=== PATIENT | male | born 1950 | race Caucasian/White ===

== ENCOUNTER 2017-11-25 08:23 | Outpatient (CLI) | payer MEDICARE, OTHER | END 2017-11-25 08:24 | disposition home or self-care (01) | LOC: BICULT 08:23 | PROVIDERS: ATTEND Internal Medicine Gastroenterology | DX: K82.4 Cholesterolosis of gallbladder (principal); K21.9 Gastro-esophageal reflux disease without esophagitis; K29.70 Gastritis, unspecified, without bleeding; R13.10 Dysphagia, unspecified; R19.4 Change in bowel habit | CPT/HCPCS: 76705 ==

== ENCOUNTER 2018-01-08 13:03 | Outpatient (CLI) | payer MEDICARE, OTHER ==
[2018-01-08 14:40] LABS: #Basophils 0.1 thou/uL (0.0-0.2); #Eosinphils 0.3 thou/uL (0.0-0.7); #Monocytes 0.9 thou/uL (0.11-0.59); #Neutrophils 4.5 thou/uL (1.40-6.50); %Basophils 1.2 % (0.0-1.0); %Lymphocytes 34.1 % (21.0-51.0); %Monocytes 10.4 % (0.0-10.0); %Neutrophils 51.3 % (42.0-75.0); Mean Corpuscular HGB CONC 33.7 g/dL (32.0-36.0); Mean Corpuscular Hemoglobin 32.1 pg (27.0-31.0); Mean Corpuscular Volume 95.1 fL (78.0-98.0); Mean Platelet Volume 7.2 fL (7.4-10.4); Platelet Count 307 thou/uL (130-400); Red Blood Cell (RBC) Count 4.68 mill/uL (4.70-6.10); White Blood Cell (WBC) Count 8.8 thou/uL (4.8-10.8)
[2018-01-08 15:00] LABS: ALT (SGPT) 21 U/L (8-55); AST (SGOT) 22 U/L (5-34); Albumin 4.4 g/dL (3.4-4.8); Alkaline Phosphatase 46 U/L (40-150); Anion Gap 11 mmol/L (10-20); BUN (Urea Nitrogen) 14 mg/dL (8.4-25.7); Bilirubin, Direct 0.1 mg/dL (0.1-0.3); Bilirubin, Total 0.4 mg/dL (0.2-1.2); Calc. Creatinine Clearance 0 mL/min (70-130); Calcium 9.7 mg/dL (7.8-10.44); Carbon Dioxide 25 mmol/L (23-31); Chloride 108 mmol/L (98-107); Estimated GFR-MDRD 82; Glucose 94 mg/dL (80-115); Sodium 140 mmol/L (136-145)
== END 2018-01-08 13:04 | disposition home or self-care (01) ==
LOC: LABBT 13:03
PROVIDERS: ATTEND Surgery
DX: Z01.812 Encounter for preprocedural laboratory examination (principal); K82.4 Cholesterolosis of gallbladder
CPT/HCPCS: 80048; 80076; 85025

== ENCOUNTER 2018-01-09 05:55 | Day surgery (SDC) | payer MEDICARE, OTHER ==
[2018-01-08 14:08] VITALS: BMI 24.3
[2018-01-09] MEDS ORDERED: Fentanyl 100 MCG/2 ML VIAL ONE ×2 (06:31→08:29)
[2018-01-09] MEDS ORDERED: CEFAZOLIN/Water 2 GM/20 ML SYRINGE ONE (06:47)
[2018-01-09] MEDS ORDERED: Bupivacaine/Epinephrine 0.25% 30 ML VIAL ONE (06:50)
[2018-01-09] MEDS ORDERED: Ondansetron HCl/PF 4 MG/2 ML Vial IVP PRN (08:53)
[2018-01-09] MEDS ORDERED: Promethazine HCl 25 MG/ML VIAL IM/IV PRN (08:53)
--- NOTE | 2018-01-09 11:18 | OP ---
DATE OF PROCEDURE: 01/09/2018 PREOPERATIVE DIAGNOSIS: Gallbladder polyp. POSTOPERATIVE DIAGNOSIS: Gallbladder polyp. PROCEDURE: Laparoscopic cholecystectomy. SURGEON: Ezequiel Alaniz M.D. ANESTHESIA: General. ESTIMATED BLOOD LOSS: Minimal. COMPLICATIONS: None. SPECIMEN: Gallbladder. FINDINGS: Chronic cholecystitis. PROCEDURE IN DETAIL: The patient was taken to the Operating Room and laid supine on the Operating Silvina m table. After general anesthetic was obtained, the abdomen was prepped and draped in a sterile fashi on. A curved incision was made below the umbilicus. Cautery was used to dissect down to the umbilical fascia. Umbilical fascia was incised and held up using a Vivian. The abdominal cavity was entered us ing a Denice clamp. Holding stitch of Vicryl was placed on each side of the fascia. Bloom trocar was placed. High-flow pneumoperitoneum was obtained. An upper midline 5-mm port and two right upper quadr ant 5-mm ports were placed under direct camera visualization. The gallbladder was retracted from the gallbladder fossa. The peritoneum of the gallbladder was opened anteriorly and posteriorly. The criti shaan view triangle was seen showing only the cystic duct and cystic artery branching from medial to la teral. There were no other branching structures. Two clips were placed proximally on the cystic duct and one laterally. It was cut using laparoscopic scissors. The cystic artery was taken in the same wa y. Electrocautery was then used to dissect the gallbladder out of the gallbladder fossa. The gallblad monica was placed in an Endo catch bag and brought out through the Bloom. There was no bleeding or bile in the liver bed. The cystic duct stump and cystic artery stump were intact without evidence of extr avasation or bleeding. All port sites were infiltrated using local anesthesia. All ports were removed under camera visualization. Pneumoperitoneum was let down. The Vicryl was used to close the fascial defect below the umbilicus. All incisions were irrigated and closed using 4-0 Monocryl and DermaBond. The patient was en route to Recovery in stable condition. All instrument counts, needle counts and l ap counts were correct.
== END 2018-01-09 11:25 | disposition home or self-care (01) ==
LOC: SDC 05:55
PROVIDERS: ATTEND Surgery
PROC: 0FT44ZZ Resection of Gallbladder, Percutaneous Endoscopic Approach (ICD-10-PCS; principal; 2018-01-09)
DX: K80.10 Calculus of gallbladder with chronic cholecystitis without obstruction (principal); K21.9 Gastro-esophageal reflux disease without esophagitis; Z79.899 Other long term (current) drug therapy; Z88.5 Allergy status to narcotic agent
CPT/HCPCS: 88304; 96374; J3010

== ENCOUNTER 2018-10-14 07:41 | Outpatient (CLI) | payer MEDICARE, OTHER ==
--- NOTE | 2018-10-14 08:45 | MRI ---
MRI cervical spine without contrast: 10/14/2018 COMPARISON: 12/04/2012 HISTORY: Cervical radiculopathy, pain TECHNIQUE: Multiplanar multisequence MR imaging of the cervical spine obtained without contrast FINDINGS: There is new anterior discectomy and fusion hardware present at C5-6. The sagittal STIR rocky ging demonstrates no focal area of osseous marrow edema. There is no anterolisthesis or retrolisthesis seen within the cervical spine. There is mild degenerative change at the atlantoaxial interspace. C2-3: Bilateral facet hypertrophy, left greater than right. No significant central canal or neural fo raminal stenosis. C3-4: Bilateral facet and uncovertebral osteophyte formation, right greater than left. Mild right omer ral foraminal stenosis. No significant central canal or left neural foraminal stenosis. C4-5: There is bilateral facet and uncovertebral osteophyte formation, left greater than right. There is a small left paracentral disc protrusion. No significant central canal stenosis. Mild bilateral neural foraminal stenosis, left greater than right. C5-6: Small left paracentral disc osteophyte complex present. This effaces the ventral thecal sac and abuts the ventral aspect of the cord laterally on the left with a mild degree of central canal stenosis. Bilateral facet and uncovertebral osteophyte formation noted, left greater than right, with moderate bilateral neural foraminal stenosis, left greater than right. C6-7: There is disc space narrowing, disc desiccation, and a small disc osteophyte complex causing mi ld central canal stenosis. Bilateral facet and uncovertebral osteophyte formation causes mild bilateral neural foraminal stenosis, right greater than left. C7-T1: Bilateral facet hypertrophy with mild bilateral neural foraminal stenosis. No significant cent ral canal stenosis. No focal area of abnormal signal intensity identified within the cervical cord. IMPRESSION: Postoperative and degenerative change within the cervical spine as described above.
--- NOTE | 2018-10-14 10:37 | MRI ---
MRI LUMBAR SPINE WITHOUT CONTRAST: INDICATIONS: History of lumbar radiculopathy. COMPARISON: 06/30/2015 FINDINGS: The visualized aspects of the retroperitoneal and paravertebral soft tissues appear within normal shirley its. There is stable modic endplate degenerative change at L5-S1. No additional marrow signal abnor mality is evident. The conus is seen to terminate at approximately L1. L5-S1: There is a broad-based disk osteophyte complex and facet hypertrophy, inducing mild left neur al foraminal narrowing. This is stable. L4-L5: There is mild facet hypertrophy and a broad-based disk bulge inducing mild bilateral neural f oraminal narrowing. This is stable to the prior exam. L3-L4: There is a mild broad-based bulge with facet hypertrophy but no appreciable central canal or neural foraminal narrowing. L2-L3: There is no appreciable central canal or neural foraminal narrowing. L1-L2: There is no appreciable central canal or neural foraminal narrowing. T12-L1: There is no appreciable central canal or neural foraminal narrowing. IMPRESSION: Stable spondylosis to the comparison study of 06/30/2015. POS: [facility]
== END 2018-10-14 07:42 | disposition home or self-care (01) ==
LOC: BICMRI 07:41
PROVIDERS: ATTEND Neurological Surgery
DX: M47.26 Other spondylosis with radiculopathy, lumbar region (principal); M47.22 Other spondylosis with radiculopathy, cervical region; Z98.890 Other specified postprocedural states
CPT/HCPCS: 72141; 72148

== ENCOUNTER 2020-07-31 11:40 | Inpatient (IN) | payer MEDICARE, OTHER ==
[2020-07-31] MEDS ORDERED: cefTRIAXone\\ROCEPHIN 2 GM VIAL ONE (12:09)
[2020-07-31 12:34] LABS: Eosinophils 1 % (0-10); Hemoglobin 15.9 g/dL (14.0-18.0); Lymphocytes 10 % (21-51); MDiff Complete? YES; Mean Corpuscular HGB CONC 33.8 g/dL (32.0-36.0); Mean Corpuscular Hemoglobin 31.7 pg (27.0-31.0); Mean Corpuscular Volume 93.9 fL (78.0-98.0); Mean Platelet Volume 7.5 fL (7.4-10.4); Monocytes 2 % (0-10); Neutrophil 87 % (42-75); Platelet Count 195 thou/uL (130-400); Platelet Morphology Comment Appears Adequate; RBC Distribution Width 11.8 % (11.5-14.5); Red Blood Cell (RBC) Count 5.02 mill/uL (4.70-6.10); White Blood Cell (WBC) Count 19.3 thou/uL (4.8-10.8)
[2020-07-31 12:38] LABS: Prothrombin Time 12.9 sec (12.0-14.7)
[2020-07-31 12:44] LABS: Bilirubin Negative (Negative); Blood, Urine Negative (Negative); Clarity Turbid (Clear); Glucose, Urine (Dipstick) Normal (Negative); Ketone, Urine Negative (Negative); Leukocyte 500 Leu/uL (Negative); Nitrite 2+ (Negative); Protein, Urine (Dipstick) 30 mg/dL (Neg-Trace); Specific Gravity, Urine 1.025 (1.002-1.036); Squamous Epithelial None Seen HPF (0-3); Urobilinogen Normal mg/dL (Less than 2); WBC/HPF Greater than 50 HPF (0-3); pH, Urine 5.5 (5.0-9.0)
[2020-07-31 12:45] LABS: RBC/HPF 0-3 HPF (0-3)
[2020-07-31 12:46] LABS: Bacteria/HPF 3+ HPF (None Seen)
[2020-07-31] MEDS ORDERED: Acetaminophen 500 MG TAB ONE (12:49)
[2020-07-31] MEDS ORDERED: Vancomycin 1 GM/200 ML BAG ONE ×2 (13:26→13:27)
[2020-07-31 13:37] LABS: Albumin 3.7 g/dL (3.4-4.8)
[2020-07-31 13:38] LABS: Chloride 106 mmol/L (98-107); Potassium 3.8 mmol/L (3.5-5.1); Sodium 137 mmol/L (136-145)
[2020-07-31 13:39] LABS: Calcium 8.3 mg/dL (7.8-10.44); Glucose 123 mg/dL (80-115)
[2020-07-31 13:40] LABS: Globulin 2.6 g/dL (2.4-3.5); Protein, Total 6.3 g/dL (5.8-8.1)
[2020-07-31 13:41] LABS: Anion Gap 13 mmol/L (10-20); Bilirubin, Total 1.2 mg/dL (0.2-1.2); Carbon Dioxide 22 mmol/L (23-31)
[2020-07-31 13:42] LABS: Alkaline Phosphatase 51 U/L (40-110)
[2020-07-31 13:43] LABS: BUN (Urea Nitrogen) 11 mg/dL (8.4-25.7); Calc. Creatinine Clearance 0 mL/min (70-130)
[2020-07-31 13:44] LABS: AST (SGOT) 14 U/L (5-34)
[2020-07-31 13:45] LABS: ALT (SGPT) 16 U/L (8-55)
[2020-07-31] MEDS ORDERED: Ondansetron PF 4 MG/2 ML Vial IVP PRN (14:01)
[2020-07-31] MEDS ORDERED: Ondansetron ODT 4 MG TAB PO PRN (14:01)
[2020-07-31] MEDS ORDERED: Vancomycin HCl 500 MG VIAL ONE (14:41)
[2020-07-31 15:36] VITALS: BMI 26.0
[2020-07-31] MEDS: Sodium Chloride 0.9% 1,000 ML IV SCH ×2 (16:31→23:47)
[2020-07-31] MEDS: Acetaminophen 325 MG TAB PO PRN (18:40)
[2020-07-31] MEDS: Cefepime 2 GM in Sodium Chloride 0.9% 100 ML IVPB SCH (20:34)
[2020-07-31] MEDS ORDERED: HYDROcodone/Acetaminophen 5/325 mg Tablet PO SCH (21:45)
[2020-07-31 22:30] LABS: SARS-CoV-2 PCR by NAA Not Detected (NotDetected)
[2020-08-01] MEDS: Sodium Chloride 0.9% 1,000 ML IV SCH ×5 (01:17→20:43)
[2020-08-01 05:39] LABS: #Eosinphils 0.3 thou/uL (0.0-0.7); #Lymphocytes 2.8 thou/uL (1.20-3.40); #Monocytes 1.5 thou/uL (0.11-0.59); #Neutrophils 10.3 thou/uL (1.40-6.50); %Basophils 0.3 % (0.0-1.0); %Eosinophils 1.9 % (0.0-10.0); %Lymphocytes 18.5 % (21.0-51.0); %Monocytes 10.4 % (0.0-10.0); %Neutrophils 68.9 % (42.0-75.0); Hemoglobin 13.3 g/dL (14.0-18.0); Mean Corpuscular HGB CONC 34.6 g/dL (32.0-36.0); Mean Corpuscular Hemoglobin 33.1 pg (27.0-31.0); Mean Corpuscular Volume 95.7 fL (78.0-98.0); Mean Platelet Volume 7.3 fL (7.4-10.4); Platelet Count 153 thou/uL (130-400); RBC Distribution Width 11.6 % (11.5-14.5); White Blood Cell (WBC) Count 14.9 thou/uL (4.8-10.8)
[2020-08-01 06:01] LABS: Lactic Acid 1.1 mmol/L (0.5-2.2)
[2020-08-01 06:04] LABS: Anion Gap 7 mmol/L (10-20); BUN (Urea Nitrogen) 9 mg/dL (8.4-25.7); Calc. Creatinine Clearance 90 mL/min (70-130); Carbon Dioxide 28 mmol/L (23-31); Chloride 110 mmol/L (98-107); Glucose 111 mg/dL (80-115); Potassium 4.3 mmol/L (3.5-5.1); Sodium 141 mmol/L (136-145)
[2020-08-01] MEDS: Enoxaparin Sodium 40 MG/0.4 ML SYRINGE SC SCH (08:28)
[2020-08-01] MEDS: Cefepime 2 GM in Sodium Chloride 0.9% 100 ML IVPB SCH ×2 (08:29→20:39)
[2020-08-01] MEDS: Acetaminophen 325 MG TAB PO PRN (20:43)
[2020-08-02 07:27] LABS: #Eosinphils 0.3 thou/uL (0.0-0.7); #Lymphocytes 1.2 thou/uL (1.20-3.40); #Monocytes 0.6 thou/uL (0.11-0.59); #Neutrophils 4.1 thou/uL (1.40-6.50); %Basophils 0.4 % (0.0-1.0); %Eosinophils 4.7 % (0.0-10.0); %Lymphocytes 19.1 % (21.0-51.0); %Neutrophils 65.8 % (42.0-75.0); Mean Corpuscular HGB CONC 33.8 g/dL (32.0-36.0); Mean Corpuscular Hemoglobin 31.9 pg (27.0-31.0); Mean Corpuscular Volume 94.4 fL (78.0-98.0); Mean Platelet Volume 7.4 fL (7.4-10.4); Platelet Count 166 thou/uL (130-400); RBC Distribution Width 11.5 % (11.5-14.5); Red Blood Cell (RBC) Count 4.37 mill/uL (4.70-6.10); White Blood Cell (WBC) Count 6.2 thou/uL (4.8-10.8)
[2020-08-02 07:49] LABS: Anion Gap 11 mmol/L (10-20); BUN (Urea Nitrogen) 7 mg/dL (8.4-25.7); Calc. Creatinine Clearance 98 mL/min (70-130); Calcium 8.8 mg/dL (7.8-10.44); Carbon Dioxide 25 mmol/L (23-31); Chloride 108 mmol/L (98-107); Glucose 107 mg/dL (80-115); Potassium 3.9 mmol/L (3.5-5.1); Sodium 140 mmol/L (136-145)
[2020-08-02] MEDS: Cefepime 2 GM in Sodium Chloride 0.9% 100 ML IVPB SCH (08:22)
[2020-08-02] MEDS: Enoxaparin Sodium 40 MG/0.4 ML SYRINGE SC SCH (08:22)
[2020-08-02] MEDS: Acetaminophen 325 MG TAB PO PRN (09:22)
[2020-08-02 15:55] VITALS: BP 138/78; TEMP 98.2
== END 2020-08-02 15:36 | disposition home or self-care (01) | DRG 872 ==
LOC: ERS 11:40 → T4-B 14:03
PROVIDERS: ADMIT Family Medicine; ATTEND Internal Medicine
DX: A41.9 Sepsis, unspecified organism (principal); N12 Tubulo-interstitial nephritis, not specified as acute or chronic; Z16.11 Resistance to penicillins; Z20.822 Contact with and (suspected) exposure to COVID-19; I10 Essential (primary) hypertension; K21.9 Gastro-esophageal reflux disease without esophagitis; N35.919 Unspecified urethral stricture, male, unspecified site; B96.20 Unspecified Escherichia coli [E. coli] as the cause of diseases classified elsewhere; Q54.9 Hypospadias, unspecified; Z88.6 Allergy status to analgesic agent; Z88.8 Allergy status to other drugs, medicaments and biological substances; Z90.49 Acquired absence of other specified parts of digestive tract; Z98.1 Arthrodesis status
CPT/HCPCS: 36415; 74176; 80048; 80053; 81003; 81015; 83605; 85025; 85610; 85730; 87040; 87077; 87086; 87186; 87635; 94760; 96365; 96367; J0692; J0696; J1650; J3370; J3490; U0003; U0005

== ENCOUNTER 2021-09-04 15:35 | Outpatient (CLI) | payer MEDICARE, OTHER | END 2021-09-04 15:36 | disposition home or self-care (01) | LOC: ULT 15:35 | PROVIDERS: ATTEND Family Medicine | DX: N50.812 Left testicular pain (principal); N50.89 Other specified disorders of the male genital organs | CPT/HCPCS: 76870; 93976 ==

== ENCOUNTER 2023-03-05 09:37 | Emergency (ER) | payer OTHER, MEDICARE ==
[2023-03-05] MEDS ORDERED: Lidocaine 1% w/Epinephrine 1:100K 20 ML VIAL ONE (10:09)
== END 2023-03-05 11:03 | disposition home or self-care (01) ==
LOC: ERS 09:37
DX: S01.511A Laceration without foreign body of lip, initial encounter (principal); W54.0XXA Bitten by dog, initial encounter
CPT/HCPCS: 40650

== ENCOUNTER 2023-03-07 09:38 | Inpatient (IN) | payer OTHER, MEDICARE ==
[2023-03-07] MEDS ORDERED: Ketorolac Tromethamine 30 MG/ML VIAL ONE (10:58)
[2023-03-07] MEDS ORDERED: Ampicillin/Sulbactam 3 GM VIAL ONE (10:58)
[2023-03-07] MEDS ORDERED: Sodium Chloride 0.9% 100 ML ONE (10:59)
[2023-03-07 11:21] LABS: #Basophils 0.1 thou/uL (0.0-0.2); #Eosinphils 0.6 thou/uL (0.0-0.7); #Monocytes 0.9 thou/uL (0.11-0.59); #Neutrophils 6.2 thou/uL (1.40-6.50); %Basophils 0.6 % (0.0-1.0); %Eosinophils 5.8 % (0.0-10.0); %Lymphocytes 19.5 % (21.0-51.0); %Monocytes 9.7 % (0.0-10.0); %Neutrophils 64.2 % (42.0-75.0); Hematocrit 44.5 % (42.0-52.0); Hemoglobin 14.8 g/dL (14.0-18.0); Mean Corpuscular HGB CONC 33.3 g/dL (32.0-36.0); Mean Corpuscular Hemoglobin 31.6 pg (27.0-31.0); Mean Corpuscular Volume 94.9 fl (78.0-98.0); Mean Platelet Volume 9.7 fL (7.4-10.4); Platelet Count 195 10x3/uL (130-400); Red Blood Cell (RBC) Count 4.69 mill/uL (4.70-6.10); White Blood Cell (WBC) Count 9.7 10x3/uL (4.8-10.8)
[2023-03-07 11:48] LABS: ALT (SGPT) 15 U/L (8-55); AST (SGOT) 12 U/L (5-34); Alkaline Phosphatase 73 U/L (40-110); Anion Gap 14 mmol/L (10-20); BUN (Urea Nitrogen) 15 mg/dL (8.4-25.7); Bilirubin, Total 0.5 mg/dL (0.2-1.2); Calc. Creatinine Clearance 0 mL/min (70-130); Calcium 9.1 mg/dL (7.8-10.44); Carbon Dioxide 25 mmol/L (23-31); Chloride 107 mmol/L (98-107); Estimated GFR 92; Globulin 2.9 g/dL (2.4-3.5); Glucose 99 mg/dL (83-110); Potassium 4.5 mmol/L (3.5-5.1); Protein, Total 6.9 g/dL (5.8-8.1); Sodium 141 mmol/L (136-145)
[2023-03-07] MEDS ORDERED: Iopamidol-370 76% 500 ML MDV (1 ML CHARGE) ONE (12:56)
[2023-03-07] MEDS ORDERED: Acetaminophen 325 MG TAB PO PRN (13:12)
[2023-03-07] MEDS ORDERED: Ibuprofen 600 MG TAB PO PRN (13:14)
[2023-03-07] MEDS ORDERED: Acetaminophen/Codeine 30-300mg Tablet PO PRN (13:14)
[2023-03-07 13:55] VITALS: BMI 22.0
[2023-03-07] MEDS: Ampicillin/Sulbactam 3 GM in Sodium Chloride 0.9% 100 ML IVPB SCH (18:18)
[2023-03-08] MEDS: Ampicillin/Sulbactam 3 GM in Sodium Chloride 0.9% 100 ML IVPB SCH ×2 (01:20→05:53)
[2023-03-08 05:55] LABS: #Basophils 0.1 thou/uL (0.0-0.2); #Eosinphils 0.8 thou/uL (0.0-0.7); #Monocytes 0.9 thou/uL (0.11-0.59); %Basophils 0.6 % (0.0-1.0); %Eosinophils 8.1 % (0.0-10.0); %Lymphocytes 24.8 % (21.0-51.0); %Monocytes 8.8 % (0.0-10.0); %Neutrophils 57.6 % (42.0-75.0); Hematocrit 40.2 % (42.0-52.0); Hemoglobin 13.6 g/dL (14.0-18.0); Mean Corpuscular HGB CONC 33.8 g/dL (32.0-36.0); Mean Corpuscular Hemoglobin 31.9 pg (27.0-31.0); Mean Corpuscular Volume 94.1 fl (78.0-98.0); Mean Platelet Volume 9.6 fL (7.4-10.4); Platelet Count 175 10x3/uL (130-400); RBC Distribution Width 13.1 % (11.5-14.5); Red Blood Cell (RBC) Count 4.27 mill/uL (4.70-6.10); White Blood Cell (WBC) Count 10.4 10x3/uL (4.8-10.8)
[2023-03-08 06:25] LABS: Anion Gap 14 mmol/L (10-20); BUN (Urea Nitrogen) 14 mg/dL (8.4-25.7); Calc. Creatinine Clearance 80 mL/min (70-130); Calcium 8.5 mg/dL (7.8-10.44); Carbon Dioxide 22 mmol/L (23-31); Chloride 108 mmol/L (98-107); Estimated GFR 95; Glucose 98 mg/dL (83-110); Potassium 3.8 mmol/L (3.5-5.1); Sodium 140 mmol/L (136-145)
[2023-03-08] MEDS ORDERED: HYDROcodone/Acetaminophen 5/325 mg Tablet PO PRN (11:07)
[2023-03-08] MEDS ORDERED: Ketorolac Tromethamine 30 MG/ML VIAL IVP PRN (11:07)
[2023-03-08] MEDS ORDERED: Piperacillin/Tazobactam 3.375 GM in Sodium Chloride 0.9% 100 ML IVPB SCH (11:30)
[2023-03-08] MEDS ORDERED: VANCOMYCIN IVPB PRN (11:33)
[2023-03-08] MEDS ORDERED: Vancomycin (BATCH) 1.25 GM in Premix 1 BAG IVPB SCH (11:45)
[2023-03-08] MEDS: Piperacillin/Tazobactam 3.375 GM in Sodium Chloride 0.9% 100 ML IVPB SCH (15:45)
[2023-03-08] MEDS ORDERED: Clindamycin/D5W 900 MG in Premix 1 BAG IVPB SCH (18:00)
[2023-03-08] MEDS ORDERED: Vancomycin 1 GM in Premix 1 BAG IVPB SCH (21:00)
[2023-03-08] MEDS: Vancomycin HCl 750 MG in Sodium Chloride 0.9% 250 ML 250 ML IVPB SCH (23:37)
[2023-03-09] MEDS: Piperacillin/Tazobactam 3.375 GM in Sodium Chloride 0.9% 100 ML IVPB SCH ×2 (00:58→08:17)
[2023-03-09 07:27] LABS: #Eosinphils 0.9 thou/uL (0.0-0.7); #Monocytes 0.7 thou/uL (0.11-0.59); #Neutrophils 4.7 thou/uL (1.40-6.50); %Basophils 0.4 % (0.0-1.0); %Eosinophils 10.7 % (0.0-10.0); %Lymphocytes 23.1 % (21.0-51.0); %Monocytes 8.9 % (0.0-10.0); %Neutrophils 56.7 % (42.0-75.0); Hematocrit 41.2 % (42.0-52.0); Mean Corpuscular Volume 94.1 fl (78.0-98.0); Mean Platelet Volume 9.9 fL (7.4-10.4); Platelet Count 199 10x3/uL (130-400); RBC Distribution Width 12.9 % (11.5-14.5); Red Blood Cell (RBC) Count 4.38 mill/uL (4.70-6.10); White Blood Cell (WBC) Count 8.2 10x3/uL (4.8-10.8)
[2023-03-09 07:48] LABS: Anion Gap 11 mmol/L (10-20); BUN (Urea Nitrogen) 12 mg/dL (8.4-25.7); CRP (Inflammatory) 0.83 mg/dL (= or < 0.5); Calc. Creatinine Clearance 74 mL/min (70-130); Calcium 8.2 mg/dL (7.8-10.44); Carbon Dioxide 24 mmol/L (23-31); Chloride 110 mmol/L (98-107); Estimated GFR 93; Glucose 113 mg/dL (83-110); Potassium 3.9 mmol/L (3.5-5.1); Sodium 141 mmol/L (136-145)
[2023-03-09] MEDS: Saccharomyces boulardii 250 MG CAP PO SCH (08:17)
[2023-03-09] MEDS: Vancomycin HCl 750 MG in Sodium Chloride 0.9% 250 ML 250 ML IVPB SCH (14:08)
[2023-03-09] MEDS: Ampicillin/Sulbactam 3 GM in Sodium Chloride 0.9% 100 ML IVPB SCH ×2 (15:33→20:34)
[2023-03-10] MEDS: Ampicillin/Sulbactam 3 GM in Sodium Chloride 0.9% 100 ML IVPB SCH ×2 (03:00→08:14)
[2023-03-10 08:00] VITALS: BP 172/84; TEMP 98
[2023-03-10] MEDS: Saccharomyces boulardii 250 MG CAP PO SCH (08:14)
== END 2023-03-10 09:50 | disposition home or self-care (01) | DRG 603 ==
LOC: ERS 09:38 → T4-B 13:12
PROVIDERS: ADMIT Family Medicine; ATTEND Family Medicine
DX: L03.211 Cellulitis of face (principal); K13.0 Diseases of lips; S01.551A Open bite of lip, initial encounter; S01.511A Laceration without foreign body of lip, initial encounter; S01.81XA Laceration without foreign body of other part of head, initial encounter; B96.89 Other specified bacterial agents as the cause of diseases classified elsewhere; R22.1 Localized swelling, mass and lump, neck; S11.95XA Open bite of unspecified part of neck, initial encounter; Z88.5 Allergy status to narcotic agent; Z88.8 Allergy status to other drugs, medicaments and biological substances; Z79.899 Other long term (current) drug therapy; Z98.890 Other specified postprocedural states; Z82.49 Family history of ischemic heart disease and other diseases of the circulatory system; Z80.9 Family history of malignant neoplasm, unspecified
CPT/HCPCS: 36415; 70487; 80048; 80053; 85025; 86140; 87070; 87077; 87186; 87205; 96365; 96366; 97139; J0295; J1885; J2543; J3370; J3490; J7050; Q9967